=== PATIENT | male | born 1950 | race Caucasian/White ===

== ENCOUNTER → 2016-05-29 | Outpatient (CLI) | payer MEDICARE | LOC: KOH-I 15:20 | DX: R91.8 Other nonspecific abnormal finding of lung field (principal) | CPT/HCPCS: 71250 ==

== ENCOUNTER → 2020-05-23 | Outpatient (CLI) | payer OTHER | LOC: CT 12-17 10:30 → KOH-I 08:46 → CT 09:30 | DX: R91.8 Other nonspecific abnormal finding of lung field (principal) | CPT/HCPCS: 71250 ==

== ENCOUNTER → 2020-07-03 | Outpatient (CLI) | payer OTHER | LOC: KOH-I 14:46 | DX: M48.02 Spinal stenosis, cervical region (principal) | CPT/HCPCS: 72141 ==

== ENCOUNTER → 2020-07-03 | Outpatient (CLI) | payer OTHER | LOC: RAD 11:20 | DX: M17.11 Unilateral primary osteoarthritis, right knee (principal) | CPT/HCPCS: 73564 ==

== ENCOUNTER 2021-07-14 23:13 | Emergency (ER) | payer OTHER | END 2021-07-15 00:38 | disposition left against medical advice (07) | LOC: ER1 23:13 | DX: Z53.21 Procedure and treatment not carried out due to patient leaving prior to being seen by health care provider (principal) ==